=== PATIENT | female | born 1995 | race Caucasian/White ===

== ENCOUNTER 2017-10-24 16:24 | Emergency (ER) | payer SELFPAY ==
[~2017-10-24] VITALS: Ht 165.1 cm; Wt 100.7 kg
[2017-10-24] MEDS ORDERED: FAMOTIDINE 20 MG/2 ML VIAL IV STA (16:37)
[2017-10-24] MEDS ORDERED: PROMETHAZINE 25MG/ NS 50ML (IV) IV ONE (16:45)
[2017-10-24] MEDS ORDERED: SODIUM CHLORIDE 0.9% 1000ML 1,000 ML IV SCH (16:45)
[2017-10-24] MEDS ORDERED: AMLODIPINE BESY10 MG PO (16:56)
[2017-10-24] MEDS ORDERED: HYDROCHLOROTHIA25 MG PO (16:56)
== END 2017-10-24 18:18 | disposition home or self-care (01) ==
LOC: FSED 16:24
DX: R11.2 Nausea with vomiting, unspecified (principal); R19.7 Diarrhea, unspecified; K52.9 Noninfective gastroenteritis and colitis, unspecified
CPT/HCPCS: 80053; 81003; 81025; 85025; 99284; J2550

== ENCOUNTER 2017-10-25 00:32 | Emergency (ER) | payer SELFPAY ==
[~2017-10-25] VITALS: Ht 165.1 cm; Wt 100.7 kg
[~2017-10-25 00:32] MED LIST: AMLODIPINE BESY10 MG PO; HYDROCHLOROTHIA25 MG PO
== END 2017-10-25 00:59 | disposition home or self-care (01) ==
LOC: FSED 00:32
DX: R11.2 Nausea with vomiting, unspecified (principal); R19.7 Diarrhea, unspecified; K52.9 Noninfective gastroenteritis and colitis, unspecified; I10 Essential (primary) hypertension
CPT/HCPCS: 99282